=== PATIENT | male | born 1940 | race Caucasian/White ===

== ENCOUNTER → 2016-11-07 09:47 | Outpatient (CLI) | payer MEDICARE ==
[~2016-11-07 09:47] MED LIST: BAYER CHEWABLE81 MG PO; BRILINTA90 MG PO; COREG12.5 MG PO; DOCUSATE S50 MG/5 ML PO; FLAGYL500 MG PO; GLUCOSAMINE HC500 MG; HYTRIN5 MG PO; LEVOTHYROXINE150 MCG PO; LOTENSIN20 MG PO; LOVASTATIN40 MG PO; NIASPAN500 MG PO; PLAQUENIL200 MG PO; POLY-VI-SOL W/I50 ML PO; POTASSIUM99 M1 PO; PROBIOTIC1 EAC1 PO; PROTONIX40 MG PO; SYNTHROID137 MCG PO; TYLENOL PM1 TAB; ULTRAM50 MG PO; ZANTAC150 MG PO; ZYRTEC10 MG PO
== END | disposition home or self-care (01) ==
LOC: D.US 09:47
DX: I71.4 Abdominal aortic aneurysm, without rupture (principal); I65.23 Occlusion and stenosis of bilateral carotid arteries

== ENCOUNTER → 2017-11-14 10:03 | Outpatient (CLI) | payer MEDICARE | END | disposition home or self-care (01) | LOC: D.US 10:03 | DX: I71.4 Abdominal aortic aneurysm, without rupture (principal); I65.23 Occlusion and stenosis of bilateral carotid arteries ==

== ENCOUNTER → 2018-12-10 09:08 | Outpatient (CLI) | payer MEDICARE | END | disposition home or self-care (01) | LOC: D.US 09:08 | DX: I10 Essential (primary) hypertension (principal); I25.5 Ischemic cardiomyopathy; N17.9 Acute kidney failure, unspecified ==